=== PATIENT | male | born 1940 | race Caucasian/White ===

== ENCOUNTER 2018-06-22 11:26 | Emergency (ER) | payer MEDICARE ==
[2018-06-22 11:53] LABS: #Eosinphils 0.5 thou/uL (0.0-0.7); #Lymphocytes 1.5 thou/uL (1.20-3.40); #Monocytes 0.7 thou/uL (0.11-0.59); #Neutrophils 5.4 thou/uL (1.40-6.50); %Basophils 0.4 % (0.0-1.0); %Eosinophils 6.4 % (0.0-10.0); %Lymphocytes 18.1 % (21.0-51.0); %Monocytes 8.4 % (0.0-10.0); %Neutrophils 66.7 % (42.0-75.0); Hemoglobin 13.9 g/dL (14.0-18.0); Mean Corpuscular HGB CONC 34.6 g/dL (32.0-36.0); Mean Corpuscular Hemoglobin 34.3 pg (27.0-31.0); Mean Corpuscular Volume 99.1 fL (78.0-98.0); Platelet Count 149 thou/uL (130-400); RBC Distribution Width 12.4 % (11.5-14.5); Red Blood Cell (RBC) Count 4.05 mill/uL (4.70-6.10); White Blood Cell (WBC) Count 8.1 thou/uL (4.8-10.8)
[2018-06-22 12:13] LABS: ALT (SGPT) 11 U/L (8-55); AST (SGOT) 14 U/L (5-34); Albumin 3.6 g/dL (3.4-4.8); Alkaline Phosphatase 78 U/L (40-150); Anion Gap 10 mmol/L (10-20); BUN (Urea Nitrogen) 20 mg/dL (8.4-25.7); Bilirubin, Total 0.5 mg/dL (0.2-1.2); CK (CPK) 72 U/L (30-200); Calc. Creatinine Clearance 0 mL/min (70-130); Calcium 8.9 mg/dL (7.8-10.44); Carbon Dioxide 30 mmol/L (23-31); Chloride 103 mmol/L (98-107); Estimated GFR-MDRD 45; Globulin 2.5 g/dL (2.4-3.5); Glucose 80 mg/dL (83-110); Protein, Total 6.1 g/dL (5.8-8.1); Sodium 139 mmol/L (136-145)
[2018-06-22 12:18] LABS: CKMB 3.6 ng/mL (0-6.6); Troponin I Less than 0.010 ng/mL (< 0.028)
--- NOTE | 2018-06-22 13:35 | CT ---
CT OF THE BRAIN WITHOUT CONTRAST: Date: 06/22/18 INDICATION: History of fall with head injury. COMPARISON: None. FINDINGS: There is moderate chronic small vessel white matter ischemic change. Septum pellucidum and third vent ricle are midline. No definite acute infarct, hemorrhage, or hydrocephalus is present. The skull and extracranial soft tissues appear within normal limits. IMPRESSION: No acute intracranial abnormality. POS: [facility]
--- NOTE | 2018-06-22 13:36 | CT ---
CT CERVICAL SPINE WITHOUT CONTRAST: Date: 06/22/18 INDICATION: History of fall. COMPARISON: None. FINDINGS: Spinal alignment is preserved. No acute fracture or subluxation is evident. Osseous central canal is preserved. Craniocervical junction is normal appearing. There is emphysema involving the lung apices. The prevertebral soft tissues appear within normal limits. IMPRESSION: No acute fracture or subluxation demonstrated. POS: [facility]
--- NOTE | 2018-06-22 15:04 | RAD ---
3 VIEWS RIGHT HIP: Date: 06/22/18 INDICATION: History of fall with right hip pain. 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 Prosthetic components project in expected position. No acute fractur e or subluxation is evident. POS: [facility]
== END 2018-06-22 13:55 | disposition home or self-care (01) ==
LOC: ERS 11:26
DX: Z04.3 Encounter for examination and observation following other accident (principal); J43.9 Emphysema, unspecified; F17.210 Nicotine dependence, cigarettes, uncomplicated; W18.30XA Fall on same level, unspecified, initial encounter
CPT/HCPCS: 36415; 70450; 72125; 80053; 82550; 82553; 84484; 85025

== ENCOUNTER 2019-05-26 08:32 | Day surgery (SDC) | payer MEDICARE ==
[2019-05-25 10:36] VITALS: BMI 26.4
[2019-05-26 08:45] LABS: #Lymphocytes 1.7 thou/uL (1.20-3.40); #Monocytes 0.8 thou/uL (0.11-0.59); #Neutrophils 8.8 thou/uL (1.40-6.50); %Basophils 0.1 % (0.0-1.0); %Eosinophils 0.3 % (0.0-10.0); %Lymphocytes 14.8 % (21.0-51.0); %Monocytes 7.2 % (0.0-10.0); %Neutrophils 77.5 % (42.0-75.0); Hemoglobin 14.3 g/dL (14.0-18.0); Mean Corpuscular HGB CONC 32.4 g/dL (32.0-36.0); Mean Corpuscular Hemoglobin 31.8 pg (27.0-31.0); Mean Corpuscular Volume 98.3 fL (78.0-98.0); Platelet Count 145 thou/uL (130-400); RBC Distribution Width 12.9 % (11.5-14.5); Red Blood Cell (RBC) Count 4.49 mill/uL (4.70-6.10); White Blood Cell (WBC) Count 11.3 thou/uL (4.8-10.8)
[2019-05-26 08:57] LABS: PTT 25.3 SEC (22.9-36.1); Prothrombin Time 12.8 SEC (12.0-14.7)
[2019-05-26 12:01] VITALS: BP 145/78; TEMP 97.2
--- NOTE | 2019-05-26 12:02 | CT ---
CT lumbar spine without contrast: HISTORY: Back pain. Prior MRI on 09/01/2018 demonstrated a lesion in the L5 vertebral body. COMPARISON: MRI lumbar spine 09/01/2018. FINDINGS: As noted in the prior MRI, the left kidney is atrophic compared to the right with mild renal cortical thinning. There is decreased density within the region of the renal pelvis likely related to either severe hydronephrosis or parapelvic renal cysts. This is unchanged compared to MRI in 2018 as well as the MRI examination on 09/03/2017. Mild bilateral perinephric stranding is present. Vascular calcifications are again seen in the abdominal aorta. Postsurgical changes related to endogr aft repair of an abdominal aortic aneurysm is present. Aneurysm sac diameter measures 4.4 cm x 3.9 cm. There is a remote compression fracture of the superior endplate of L2 vertebral body with stable degr ee of height loss compared to prior studies. There is subtle increased groundglass density within the L5 vertebral body in the region of the previously noted lesions on prior MRI, but there is no cor responding lytic lesion present. L1-2: Mild disc osteophyte complex is present. This results in mild effacement of the ventral aspect of thecal sac. Neural foramina are patent. L2-3: No significant central canal or neural foraminal narrowing is seen. L3-4: There is mild disc osteophyte complex with mild facet degenerative changes. There is mild bilat eral neural foraminal narrowing with mild narrowing of the central spinal canal. L4-5: There is a broad-based disc osteophyte complex. Facet hypertrophic changes and ligamentous thic kening are present. There is moderate narrowing of the central spinal canal, but the central canal does appear more narrow than on the MRI examination. There is thickening of the ligamentum flavum at this level. There is moderate bilateral neural foraminal narrowing. L5-S1: Mild disc bulge is present at this level, but the central spinal canal and neural foramina are patent. IMPRESSION: 1. Previously noted lesions in the posterior aspect of the L5 vertebral body and involving the left p edicle are much less well delineated on this CT scan examination. There is subtle groundglass densities seen in this region on the CT exam, but a discrete definable lesion is difficult to delinea te. No additional lytic or sclerotic osseous lesions are appreciated. 2. Degenerative changes in the lumbar spine overall similar to prior exam; although, the degree of ce ntral canal narrowing at the L4-5 level does appear increased from prior study. 3. Moderate to severe left-sided hydronephrosis versus left renal parapelvic cysts. 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 This finding is stable compared to prior studies in 2018 and 2017.
--- NOTE | 2019-05-26 13:19 | CT ---
EXAM: CT Deep Bone Perc Biopsy PROVIDED CLINICAL HISTORY: Lesion in L5 vertebral body COMPARISON: CT lumbar spine on 05/26/2019 0929 hours. TECHNIQUE: The procedure including the risks and complications were explained to the patient, informed consent w as obtained. Patient was placed on the CT scan table in the prone position. Limited noncontrasted CT scan was obtained through the level of the L5 vertebral body with grid localizer in place. An area was marked and then meticulously prepped and draped in usual sterile fashion. The skin and roper bcutaneous tissues were infiltrated with buffered 1% lidocaine for local anesthesia. A 14-gauge guide needle was placed in position at the anterior cortex of the left pedicle of the L5 vertebral yohan dy. The needle was then advanced just through the cortex and positioning was confirmed with [address] images. Utilizing coaxial technique, a 13-gauge bone biopsy needle was advanced and a bone biopsy was attempted. However, this did not yield a core biopsy specimen. As a result, a second attempt was performed, but again without success. The guide needle was slightly withdrawn and a third attempt was performed, again a core biopsy specimen was unable to be obtained. As result, a bone marrow aspiration was performed at this time with approximately 3 mL of bone marrow aspirate obt ained. The needle was removed, and hemostasis was achieved with direct pressure. A dry sterile dressing was placed. The patient tolerated the procedure well and without immediate complication. Patient was transported to radiology nurses holding for further monitoring prior to discharge. IMPRESSION: Successful bone marrow aspiration at the level of the L5 pedicle. Three separate attempts at a core b one biopsy were unsuccessful. Findings were discussed with Dr. Ortega at this time given unsuccessful attempt at obtaining a core bone biopsy. A bone scan is recommended for further evaluati on to assess for additional lesions.
== END 2019-05-26 13:05 | disposition home or self-care (01) ==
LOC: CT 08:32
PROVIDERS: ATTEND Neurological Surgery
DX: M54.16 Radiculopathy, lumbar region (principal); M25.78 Osteophyte, vertebrae; I10 Essential (primary) hypertension; E78.5 Hyperlipidemia, unspecified; F17.210 Nicotine dependence, cigarettes, uncomplicated; J44.9 Chronic obstructive pulmonary disease, unspecified; K21.9 Gastro-esophageal reflux disease without esophagitis; M54.12 Radiculopathy, cervical region
CPT/HCPCS: 20225; 36415; 72131; 77002; 85025; 85610; 85730; 88173; 88305; 88341; 88342